=== PATIENT | female | born 1990 | race Caucasian/White ===

== ENCOUNTER → 2018-09-30 | Day surgery (SDC) | payer OTHER ==
[~2018-09-30] MED LIST: Acetaminophen IV 1GM/100ML * 100 ML ONE; Bacitracin OINTMENT* 0.5% 0.5 oz TUBE ONE; Buffered Lidocaine 1% SYRIN* 1 ML/SYRINGE INTRADERM ONE; Dexamethasone IV* 4 MG/ML 1 ML (4 MG) ONE; DiMENhydriNATE IV* 50 MG/ML VIAL IV PUSH PRN; EPHEDrine (Pressors)* 50 MG/ML VIAL ONE; Esmolol* 10 MG/ML 10 ML (100 mg) ONE; Ketorolac INJ* 30 MG/ML 1 ML VIAL ONE; Labetalol IV* 5 MG/ML 20 ML VIAL ONE; Lactated Ringers 1000 ML Bag* 1,000 ML IV SCH; Lidocaine 1% w EPI 1:100,000* MDV 20 ML VIAL ONE; Lidocaine 2% PF * 5 ML VIAL ONE; Lidocaine 4% TOPICAL* 50 ML TOP.SOLN ONE; Metoclopramide IV* 5 MG/ML 2 ML VIAL ONE; Midazolam* 1 MG/ML 2 ML VIAL (2 MG) ONE; Naloxone* 0.4 MG/ML 1 ML VIAL IV PRN; Ondansetron INJ* 2 MG/ML VIAL ONE; Oxymetazoline 0.05% NASAL SPR* 15 ML BTL ONE; Propofol* 10 MG/ML 20 ML BTL ONE; Propofol* 500 MG/50 ML BTL ONE; Rocuronium* 10 MG/ML VIAL ONE; Sugammadex * 200 MG/2 ML VIAL IV PUSH ONE; fentaNYL* 50 MCG/ML 2 ML VIAL (100 MCG VIAL) IV PRN; fentaNYL* 50 MCG/ML 2 ML VIAL (100 MCG VIAL) ONE; oxyCODONE TAB* 5 MG TAB PO PRN
[2018-09-30 10:31] VITALS: BP 135/87
--- NOTE | 2018-09-30 19:44 | OP ---
DATE OF OPERATION: 09/30/18 - [facility] DATE OF : 88 SURGEON: Peng Sevilla MD. INDUSTRIAL CHEMIST: None. ANESTHESIA: General. PRE-OP DIAGNOSES: Deviated nasal septum, bilateral inferior turbinate hypertrophy. POST-OP DIAGNOSES: Deviated nasal septum, bilateral inferior turbinate hypertrophy. OPERATIVE PROCEDURE: Outfracture and cautery of the inferior turbinates and septoplasty. ESTIMATED BLOOD LOSS: Approximately 50 cc. SPECIMENS: None. DESCRIPTION OF PROCEDURE: This is a 27-year-old woman with lifelong and progressive nasal airway obstruction refractory to medical management, who was noted to have severe septal deviation on exam in the office with bilateral inferior turbinate hypertrophy. The decision was made to proceed with surgical intervention on 09/30/18. The patient was brought to the operating room. General anesthesia was induced and an oral endotracheal tube was placed. The patient had been given Afrin in the holding area. Additional pledgets soaked with Afrin and 4% lidocaine were placed into each nasal cavity. Once adequate time had been allotted for vasoconstriction, 1% lidocaine with 1:100,000 epinephrine was infiltrated into the the columella on both sides of the septum to elevate a mucoperichondrial flap and both inferior turbinates. About 9 cc was used. Procedure was begun by addressing the turbinates. The turbinates were in-fractured. Multiple passes were made through each turbinate. Using the Elmed bipolar device, they were then outfractured. The septum was then addressed. A left hemitransfixion incision was made with a #15 blade. A left mucoperichondrial flap was elevated. There was a very sharp septal spur which extended posteriorly and superiorly impacting deeply into the middle meatus. Once the left hemitransfixion incision was made, a vertical incision was made through the quadrangular cartilage just posterior to the incision, this was used to facilitate the submucoperichondrial space on the right and a mucoperichondrial flap was elevated on this side. A Greg swivel knife was used to resect a large piece of quadrangular cartilage. The anterior portion of the maxillary crest was deviated into the left nasal cavity and this was taken down with a 4- mm osteotome. More posteriorly, the bony septum was extremely thickened and impinging into the middle meatus. This was removed partially in a piecemeal fashion using a double action through-cutting rongeur. Once the nasal airway appeared to be adequate, a morselizer was used to flatten the piece of quadrangular cartilage, which was then placed between mucoperichondrial flaps and sutured in position using a plain gut. The hemitransfixion incision was then closed using 4-0 chromic. Septal splints were then placed and secured using 4-0 Prolene. These were coated with bacitracin ointment. The patient was then returned to the care of the anesthesiologist, delivered to the PACU. [id number] #: [id number] CHERIE
== END | disposition home or self-care (01) ==
LOC: OR 09:52
PROVIDERS: ATTEND Otolaryngology
DX: J34.2 Deviated nasal septum (principal); J34.3 Hypertrophy of nasal turbinates; C73 Malignant neoplasm of thyroid gland
CPT/HCPCS: 81025; A9270-GY; J1100; J1885; J2250; J2405; J2704; J2765; J3010